=== PATIENT | male | born 1990 | race Hispanic/Latino ===

== ENCOUNTER 2016-09-18 17:27 | Emergency (ER) | payer MEDICARE, OTHER ==
[2016-09-18 17:39] VITALS: BMI 29.7
[2016-09-18] MEDS ORDERED: TDAP Vaccine 0.5 mL Syr IM ONE (17:39)
[2016-09-18] MEDS ORDERED: Lidocaine 1%/Epinephrine 1:100000 30 ml vial IJ STA (17:39)
--- NOTE | 2016-09-18 17:45 | ED PDOC ---
Arrival/HPI - General Time Seen by Provider: 09/18/16 17:38 Historian: Patient - History of Present Illness Narrative History of Present Illness (Text): 09/18/16 17:40 This 25 yo male presents to this ED c/o left anterior knee laceration x [employer]. Patient stated while walking in his bathroom, he slipped and fell down on the floor. He said as he was falling, his left anterior knee hit bathroom tile wall. Patient has been ambulatory. Knee have FROM Time/Duration: Prior to Arrival Context: Home Past Medical History - Provider Review Nursing Documentation Reviewed: Yes - Past History Past History: No Previous - Infectious Disease Hx of Infectious Diseases: None - Tetanus Immunization Tetanus Immunization: Unknown - Past Medical History Past Medical History: No Previous - Cardiac Hx Hypertension: No Hx Pacemaker: No - Pulmonary Hx Asthma: No Hx Chronic Obstructive Pulmonary Disease (COPD): No Hx Emphysema: No - Neurological HX Cerebrovascular Accident: No Hx Dementia: No Hx Seizures: No - Renal Hx Renal Disorder: No - Endocrine/Metabolic Hx Endocrine Disorders: No - Hematological/Oncological Hx Anemia: No Hx Cancer: No - Musculoskeletal/Rheumatological Hx Falls: No - Gastrointestinal Hx Gastrointestinal Disorders: No - Genitourinary/Gynecological Hx Genitourinary Disorders: No Hx Reproductive Disorders: No - Psychiatric Hx Anxiety: Yes Hx Schizophrenia: Yes Hx Substance Use: No - Past Surgical History Past Surgical History: No Previous - Surgical History Hx Gastric Bypass Surgery: No - Suicidal Assessment Feels Threatened In Home Enviroment: No Family/Social History - Physician Review Nursing Documentation Reviewed: Yes Family/Social History: No Known Family HX Hx Alcohol Use: No Hx Substance Use: No Hx Substance Use Treatment: No Allergies/Home Meds Allergies/Adverse Reactions: Allergies No Known Allergies Allergy (Verified 04/01/12 13:43) Home Medications: Home Meds Medication Instructions Recorded Confirmed Paliperidone [Invega Sustenna] 117 mg IM ONCE 09/18/16 09/18/16 Review of Systems - Review of Systems Constitutional: Normal. absent: Fatigue, Weight Change, Fevers Eyes: Normal ENT: Normal Respiratory: Normal Cardiovascular: Normal Gastrointestinal: Normal Genitourinary Male: Normal Musculoskeletal: Other (Left anterior knee laceration) Skin: Normal Neurological: Normal Endocrine: Normal Hemo/Lymphatic: Normal Psychiatric: Normal Physical Exam Vital Signs Temp Pulse Resp BP Pulse Ox 09/18/16 17:42 97.6 F 106 H 18 144/84 99 Temperature: Afebrile Blood Pressure: Normal Pulse: Regular Respiratory Rate: Normal Appearance: Positive for: Well-Appearing, Non-Toxic, Comfortable Pain Distress: None Mental Status: Positive for: Alert and Oriented X 3 - Systems Exam Head: Present: Atraumatic, Normocephalic, Other (no raccon sign. No castillo sign ) Pupils: Present: PERRL, Other (no hyphema) Extroacular Muscles: Present: EOMI. No: Entrapment Conjunctiva: Present: Normal Ears: Present: Normal, NORMAL TM, Normal Canal. No: Erythema, TM Bulging, Fluid , TM Perf Mouth: Present: Moist Mucous Membranes Nose (External): Present: Atraumatic Nose (Internal): Present: Normal Inspection Neck: Present: Normal Range of Motion Respiratory/Chest: Present: Clear to Auscultation, Good Air Exchange. No: Respiratory Distress, Accessory Muscle Use, Retracting, Rhonchi, Tender to Palpation Cardiovascular: Present: Regular Rate and Rhythm, Normal S1, S2. No: Murmurs Abdomen: Present: Normal Bowel Sounds. No: Tenderness, Distention, Peritoneal Signs Back: Present: Normal Inspection. No: CVA Tenderness Upper Extremity: Present: Normal Inspection, Normal ROM, NORMAL PULSES, Neurovascularly Intact, Capillary Refill < 2s. No: Cyanosis, Edema Lower Extremity: Present: Edema, NORMAL PULSES, Normal ROM, Neurovascularly Intact, Capillary Refill < 2 s, Other ((+) C-shape laceration anterior left knee , approx. 5 cm, no deep structure involved). No: CALF TENDERNESS, Cyanosis, Xiomara's Sign, Tenderness, Swelling, Erythema, Deformity, Temperature Abnormalties Neurological: Present: GCS=15, CN II-XII Intact, Speech Normal, Motor Func Grossly Intact, Normal Sensory Function, Normal Cerebellar Funct, Gait Normal Skin: Present: Warm, Dry, Normal Color. No: Rashes Psychiatric: Present: Alert, Oriented x 3, Normal Insight, Normal Concentration Medical Decision Making ED Course and Treatment: 09/18/16 20:14 Re-evaluation. Patient feels better. Discussed results and plan with patient who expresses understanding. All questions answered and there is agreement with the plan to discharge home with instructions. Patient stable for discharge. Return if symptoms persist or worsen. Re-evaluation Time: 20:14 Reassessment Condition: Re-examined, Improved - RAD Interpretation Narrative RAD Interpretations (Text): 09/18/16 20:14 Knee x-rays: No Fx or FB Radiology Orders: 09/18/16 17:39 KNEE LEFT 2 VIEWS (AP & LAT) [RAD] Stat - Medication Orders Current Medication Orders: Discontinued Medications Lidocaine/Epinephrine (Lidocaine 1%/Epinephrine 1:319996 30 Ml) 3 ml IJ STAT STA Stop: 09/18/16 17:40 Tetanus/Reduced Diphtheria/Acell Pertussis (Boostrix Vaccine Inj) 0.5 ml IM .ONCE ONE Stop: 09/18/16 17:40 Last Admin: 09/18/16 17:54 Dose: 0.5 ml - Procedure PROCEDURE NOTE (Text): 09/18/16 18:48 PROCEDURE: LACERATION REPAIR Performed by the emergency provider Location: left anterior knee Length: 5 cm Description: clean wound edges, no foreign bodies Distal CMS: Normal. No deficits. Neurovascularly intact. Anesthesia: Lidocaine 1% with Epi Preparation: The wound was cleaned with NS and [place]. The area was prepped and draped in the usual sterile fashion. Exploration: The wound was explored and no foreign bodies were found. Procedure: The wound was closed with 4-0, interrupted, nylon. There was good approximation. In total, 5 sutures were used. Post-Procedure: Good closure and hemostasis. The patient tolerated the procedure well and there were no complications. CSM remains intact. Post procedure dressing applied. Disposition/Present on Arrival - Present on Arrival Any Indicators Present on Arrival: No History of DVT/PE: No History of Uncontrolled Diabetes: No Urinary Catheter: No History Surgical Site Infection Following: None - Disposition Have Diagnosis and Disposition been Completed?: Yes Diagnosis: Knee laceration, Knee pain Disposition: HOME/ ROUTINE Disposition Time: 20:15 Patient Plan: Discharge Condition: IMPROVED Discharge Instructions (ExitCare): Care For Your Stitches (ED) Additional Instructions: Call private doctor office for wound recheck in 2-3 days. Sutures needs to be removed in 7-10 days. Keep wound clean and dry for 2 days, then clean wound with soap and water daily. Return to emergency if wound becomes infected, swelling, discharge or redness or unable to see your doctor Referrals: PCP,NO [Primary Care Provider] - Follow up with primary [facility] [Outside] - Follow up with primary [facility] [Outside] - Follow up with primary Forms: Air Visits Discharge ([place]ian)
[2016-09-18 17:46] VITALS: BP 144/84; PULSE 106; RESP 18; TEMP 97.6; O2SAT 99
--- NOTE | 2016-09-19 10:09 | RAD ---
PROCEDURE: Left Knee Radiographs. AP and cross-table lateral views of the left knee performed HISTORY: Pain. COMPARISON: None. FINDINGS: BONES: Normal. No fracture. JOINTS: Normal. No osteoarthritis. JOINT EFFUSION: None. OTHER FINDINGS: None. IMPRESSION: No evidence of acute displaced fracture nor dislocation. If symptoms persist or occult fracture suspected clinically recommend repeat radiographs in 5-10 days as most fractures should become radiographically evident this timeframe. Alternatively, consider followup MRI if pain persists.
== END 2016-09-18 20:20 | disposition home or self-care (01) ==
LOC: ED 17:27
DX: S81.012A Laceration without foreign body, left knee, initial encounter (principal); W01.0XXA Fall on same level from slipping, tripping and stumbling without subsequent striking against object, initial encounter; Y93.01 Activity, walking, marching and hiking; Y92.002 Bathroom of unspecified non-institutional (private) residence as the place of occurrence of the external cause; M25.562 Pain in left knee; Z23 Encounter for immunization